=== PATIENT | male | born 1995 | race Caucasian/White ===

== ENCOUNTER 2019-04-06 15:45 | Emergency (ER) | payer BC, OTHER ==
[2019-04-06 16:24] VITALS: BP 130/69
--- NOTE | 2019-04-06 16:45 | ED ---
Throat Pain/Nasal Congestion - HPI Summary HPI Summary: 24 yr old male with the complaint of sore throat. Onset of symptoms four days ago. The patient had runny nose, cough and then over past couple days a worsening sore throat. No fever or chills. No rash. No other complaints. The patient has pain that is worse with swallowing. No drooling, no stridor. - History of Current Complaint Chief Complaint: UCGeneralIllness Time Seen by Provider: 04/06/19 16:26 - Allergies/Home Medications Allergies/Adverse Reactions: Allergies Allergy/AdvReac Type Severity Reaction Status Date / Time No Known Allergies Allergy Verified 04/06/19 16:24 Home Medications: Home Medications NK [No Home Medications Reported] 04/06/19 [History Confirmed 04/06/19] PMH/Surg Hx/FS Hx/Imm Hx Endocrine/Hematology History: Denies: Hx Diabetes, Hx Thyroid Disease Cardiovascular History: Denies: Hx Hypertension Respiratory History: Denies: Hx Asthma, Hx Chronic Obstructive Pulmonary Disease (COPD) GI History: Denies: Hx Ulcer Infectious Disease History: No Infectious Disease History: Denies: Hx Hepatitis, Hx Human Immunodeficiency Virus (HIV), Traveled Outside the [place] in Last 30 Days - Family History Known Family History: Positive: None - Social History Occupation: Employed Full-time Alcohol Use: Occasionally Substance Use Type: Reports: None Smoking Status (MU): Never Smoked Tobacco Review of Systems Constitutional: Negative Positive: Sore Throat, Nasal Discharge Positive: Cough All Other Systems Reviewed And Are Negative: Yes Physical Exam Triage Information Reviewed: Yes Vital Signs On Initial Exam: Initial Vitals Temp Pulse Resp BP Pulse Ox 99.3 F 91 18 130/69 97 04/06/19 16:20 04/06/19 16:20 04/06/19 16:20 04/06/19 16:20 04/06/19 16:20 Vital Signs Reviewed: Yes Appearance: Positive: Well-Appearing, No Pain Distress Skin: Positive: Warm, Skin Color Reflects Adequate Perfusion Head/Face: Positive: Normal Head/Face Inspection Eyes: Positive: EOMI, MAYNOR ENT: Positive: Nasal congestion, TMs normal Neck: Positive: Nontender Respiratory/Lung Sounds: Positive: Clear to Auscultation, Breath Sounds Present Cardiovascular: Positive: RRR. Negative: Murmur Abdomen Description: Positive: Nontender Musculoskeletal: Positive: Strength/ROM Intact Neurological: Positive: Sensory/Motor Intact, Alert, Oriented to Person Place, Time, CN Intact II-III, Normal Gait, Speech Normal Psychiatric: Positive: Normal - [place] Coma Scale Best Eye Response: 4 - Spontaneous Best Motor Response: 6 - Obeys Commands Best Verbal Response: 5 - Oriented Coma Scale Total: 15 Diagnostics - Vital Signs Vital Signs Temp Pulse Resp BP Pulse Ox 04/06/19 16:20 99.3 F 91 18 130/69 97 - Laboratory Lab Results: Lab Results 04/06/19 Range/Units 16:31 Group A Strep Rapid Negative (Negative) Lab Statement: Any lab studies that have been ordered have been reviewed, and results considered in the medical decision making process. EENT Course/Dx - Course Course Of Treatment: 24 yr old male with sore throat. Plan DC home Viral URI. Strep neg - Diagnoses Provider Diagnoses: Sore throat, Hypertension Discharge - Sign-Out/Discharge Documenting (check all that apply): Patient Departure All imaging exams completed and their final reports reviewed: No Studies - Discharge Plan Condition: Good Disposition: HOME Patient Education Materials: Upper Respiratory Infection (ED), Hypertension (ED ) Referrals: David Parker MD [Primary Care Provider] - 2 Weeks - Billing Disposition and Condition Condition: GOOD Disposition: Home
== END 2019-04-06 16:57 | disposition home or self-care (01) ==
LOC: UCCORT 15:45
DX: J02.9 Acute pharyngitis, unspecified (principal); I10 Essential (primary) hypertension
CPT/HCPCS: 87651; 99211; G0463